=== PATIENT | male | born 1955 | race Caucasian/White ===

== ENCOUNTER → 2024-04-04 10:19 | Outpatient (REF) | payer MEDICARE, SELFPAY | LOC: RAD 10:19 | PROVIDERS: ATTENDING PHYSICIAN Surgery; FAMILY PHYSICIAN Family Medicine | DX: H05.89 Other disorders of orbit (principal) | CPT/HCPCS: 70030 ==

== ENCOUNTER → 2024-04-06 07:27 | Outpatient (REF) | payer MEDICARE, SELFPAY | LOC: MRI 3T 07:27 | PROVIDERS: ATTENDING PHYSICIAN Surgery; FAMILY PHYSICIAN Family Medicine | DX: R97.20 Elevated prostate specific antigen [PSA] (principal) | CPT/HCPCS: 72197; A9575 ==